=== PATIENT | female | born 2000 | race African-American/Black ===

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

== ENCOUNTER 2019-11-24 14:56 | Emergency (ER) | payer BC, OTHER ==
[~2019-11-24] VITALS: Ht 165.1 cm; Wt 77.3 kg
[~2019-11-24 14:56] MED LIST changes: +LEXAPRO 10MG10 MG PO; +WELLBUTRIN XL150 MG PO
[2019-11-24 16:50] LABS: BASO % 0.2 % (0.0-2.0); GRAN # 11.2 (1.4-6.5); GRAN % 88.4 % (42.2-75.2); HEMATOCRIT 43.8 % (35.0-45.0); HEMOGLOBIN 14.8 g/dl (12.0-15.0); LYMPH # 1.2 (1.2-3.4); LYMPH % 9.4 % (20.0-51.0); MEAN CELL VOLUME 85 fl (80.0-95.0); MEAN CORPUSCULAR HEMOGLOBIN 29 pg (26.0-32.0); MEAN CORPUSCULAR HGB CONC 34 g/dl (33.0-37.0); MONO # 0.2 (0.1-0.6); MONO % 1.7 % (1.7-9.3); PLATELET COUNT 412 K/mm3 (130-400); RED BLOOD COUNT 5.15 M/mm3 (4.10-5.30); REDCELL DISTRIBUTION WIDTH-CV 12.4 % (11.5-14.5)
[2019-11-24 17:02] LABS: ALANINE AMINOTRANSFERASE 44 U/L (4-34); ALKALINE PHOSPHATASE 79 U/L (50-136); ANION GAP 9 mmol/L (7-16); AST,SGOT 24 U/L (15-37); BILIRUBIN,TOTAL 0.4 mg/dL (0.0-1.0); BLOOD UREA NITROGEN 17 mg/dL (7-17); CALCIUM 9.5 mg/dL (8.4-10.2); CARBON DIOXIDE 25 mmol/L (22-30); CHLORIDE 104 mmol/L (98-107); CREATININE, serum 0.86 (0.52-1.25); GLUCOSE 158 mg/dL (74-106); POTASSIUM 4.5 mmol/L (3.4-5.0); SODIUM 138 mmol/L (137-145); TOTAL PROTEIN 8.4 gm/dL (6.4-8.2)
[2019-11-24 17:14] LABS: C-REACTIVE PROTEIN < 0.5 mg/dL (0.0-0.9); TROPONIN-I < 0.012 ng/mL (0.000-0.035)
[2019-11-24 17:39] VITALS: BP 115/73; PULSE 72; TEMP 97.6
== END 2019-11-24 17:39 | disposition home or self-care (01) ==
LOC: COL.ER 14:56
PROVIDERS: Physician Assistant
DX: R07.9 Chest pain, unspecified (principal); R50.9 Fever, unspecified; R05 Cough; Z20.828 Contact with and (suspected) exposure to other viral communicable diseases; Z88.8 Allergy status to other drugs, medicaments and biological substances

== ENCOUNTER 2021-08-05 20:11 | Emergency (ER) | payer BC ==
[~2021-08-05] VITALS: Ht 165.1 cm; Wt 95.5 kg
[2021-08-05 20:38] VITALS: TEMP 98.3
[2021-08-05 21:38] LABS: BASO # 0.1 K/mm3 (0.0-0.2); BASO % 0.5 % (0.0-2.0); EOS # 0.2 K/mm3 (0.0-0.7); EOS % 2.3 % (0.0-4.0); GRAN % 52.8 % (42.2-75.2); HEMATOCRIT 39.1 % (37.0-47.0); HEMOGLOBIN 13.2 g/dl (12.5-16.0); LYMPH # 3.3 K/mm3 (1.2-3.4); LYMPH % 35.2 % (20.0-51.0); MEAN CELL VOLUME 85 fl (80.0-100.0); MEAN CORPUSCULAR HEMOGLOBIN 29 pg (27-31); MEAN CORPUSCULAR HGB CONC 34 g/dl (33.0-37.0); MONO # 0.8 K/mm3 (0.1-0.6); MONO % 8.9 % (1.7-9.3); PLATELET COUNT 352 K/mm3 (130-400); RED BLOOD COUNT 4.61 M/mm3 (4.10-5.30); REDCELL DISTRIBUTION WIDTH-CV 12.9 % (11.5-14.5)
[2021-08-05 21:42] LABS: COLLECTION METHOD CLEAN CATCH
[2021-08-05 21:57] LABS: MUCOUS Present (NOT PRESENT); PH 5 (5-8); SQUAMOUS EPITHELIAL 0-2 /hpf (0-10); URINE APPEARANCE Clear (CLEAR/HAZY); URINE BACTERIA None Seen /hpf (NONE SEEN); URINE BILIRUBIN Negative (NEGATIVE); URINE BLOOD Negative (NEGATIVE); URINE COLOR Yellow (YELLOW); URINE GLUCOSE Negative (NEGATIVE); URINE KETONE Negative (NEGATIVE); URINE LEUKOCYTE ESTERASE Negative (NEGATIVE); URINE NITRATE Negative (NEGATIVE); URINE PROTEIN(semi-quant) Negative (NEGATIVE); URINE RBC 0-2 /hpf (0-2); URINE UROBILINOGEN Negative (NEGATIVE)
[2021-08-05 21:59] LABS: BILIRUBIN,TOTAL 0.2 mg/dL (0.2-1.2); C-REACTIVE PROTEIN 0.56 mg/dL (0.00-0.50); CALCIUM 8.9 mg/dL (8.4-10.2); CREATININE, serum 0.87 mg/dL (0.57-1.11); POTASSIUM 3.8 mmol/L (3.5-4.5); TOTAL PROTEIN 7.7 gm/dL (6.2-8.1)
[2021-08-05 23:07] VITALS: BP 124/91; PULSE 89
== END 2021-08-05 23:07 | disposition home or self-care (01) ==
LOC: COL.ER 20:11
PROVIDERS: Family Medicine
DX: N83.201 Unspecified ovarian cyst, right side (principal); E11.9 Type 2 diabetes mellitus without complications; Z79.84 Long term (current) use of oral hypoglycemic drugs; Z32.02 Encounter for pregnancy test, result negative
CPT/HCPCS: J2270; J2405; J7120; Q9967

== ENCOUNTER → 2021-10-31 | Outpatient (CLI) | payer BC | LOC: COL.RAD 08:24 | DX: N83.201 Unspecified ovarian cyst, right side (principal) ==